=== PATIENT | female | born 1955 ===

== ENCOUNTER 2025-01-22 13:11 | Outpatient (AMB) | payer MEDICARE, SELFPAY ==
--- OUTSIDE RECORDS SUMMARY | 2025-01-22 14:19 | XMS_ITS | Clinical Summary ---
Author Organization [facility] Facility Address [address] [place] [id number] Care Team Providers Care Bonding Machine Tender Name Role Phone Tuan Alicia MD Primary Care Provider [phone] Social History Tobacco Use Types Packs/Day Years Used Date Smoking Tobacco: Never Assessed Comments Unknown Sex and Gender Information Value Date Recorded Sex Assigned at Not on file Legal Sex Female 3:10 PM EDT Gender Identity Not on file Sexual Orientation Not on file Plan of Treatment Health Maintenance Due Date Last Done Comments Breast Cancer Screening 1955 Colorectal Cancer Screening: Annual FOBT 2002 Colorectal Cancer Screening: Colonoscopy 2002 Colorectal Cancer Screening: Sigmoidoscopy 2002 Pneumococcal Vaccine: 50+ Ye ars (1 of 1 - PCV) 09/29/2003 Influenza Vaccine (#1) 2025 Hepatitis B Vaccine Aged Out No longe r eligible based on patient's age to complete this topic Insurance [employer] Care Teams Bonding Machine Tender Relationship Specialty Start Date End Date Tuan Alicia MD [address] [place] [address] PCP - General Internal Medicine 09/07/22
== END 2025-01-22 13:12 | disposition home or self-care (01) ==
LOC: HO.HMGAL 13:11
PROVIDERS: PCP Internal Medicine; Visit Provider Registered Nurse Emergency
DX: J30.89 Other allergic rhinitis (principal)
CPT/HCPCS: 95117; 95165

== ENCOUNTER 2025-02-20 13:11 | Outpatient (AMB) | payer MEDICARE, SELFPAY ==
--- OUTSIDE RECORDS SUMMARY | 2025-02-20 16:49 | XMS_ITS | Clinical Summary ---
Author Organization [facility] Facility Address [address] [place] [id number] Care Team Providers Care Mathematics Professor Name Role Phone Tuan Alicia MD Primary Care Provider Social History Tobacco Use Types Packs/Day Years [...] this topic Insurance [employer] Care Teams Mathematics Professor Relationship Specialty Start Date End Date Tuan Alicia MD [address] [place] [address] PCP - General Internal Medicine 09/07/22
== END 2025-02-20 13:19 | disposition home or self-care (01) ==
LOC: HO.HMGAL 13:11
PROVIDERS: PCP Internal Medicine; Visit Provider Registered Nurse Emergency
DX: J30.89 Other allergic rhinitis (principal)
CPT/HCPCS: 95117; 95165

== ENCOUNTER 2025-03-25 13:32 | Outpatient (AMB) | payer MEDICARE, SELFPAY ==
--- OUTSIDE RECORDS SUMMARY | 2025-03-25 16:39 | XMS_ITS | Clinical Summary ---
Author Organization [facility] Facility Address [address] [place] [id number] Care Team Providers Care Medicaid Business Analyst Name Role Phone Tuan Alicia MD Primary [...] this topic Insurance [employer] Care Teams Medicaid Business Analyst Relationship Specialty Start Date End Date Tuan Alicia MD [address] [place] [address] PCP - General Internal Medicine 09/07/22
== END 2025-03-25 13:36 | disposition home or self-care (01) ==
LOC: HO.HMGAL 13:32
PROVIDERS: PCP Internal Medicine; Visit Provider Registered Nurse Emergency
DX: J30.89 Other allergic rhinitis (principal)
CPT/HCPCS: 95117; 95165

== ENCOUNTER 2025-04-22 13:10 | Outpatient (AMB) | payer MEDICARE, SELFPAY | END 2025-04-22 13:12 | disposition home or self-care (01) | LOC: HO.HMGAL 13:10 | PROVIDERS: PCP Internal Medicine; Visit Provider Registered Nurse Emergency | DX: J30.89 Other allergic rhinitis (principal) | CPT/HCPCS: 95117; 95165 ==

== ENCOUNTER 2025-05-22 13:25 | Outpatient (AMB) | payer MEDICARE, SELFPAY | END 2025-05-22 13:26 | disposition home or self-care (01) | LOC: HO.HMGAL 13:25 | PROVIDERS: PCP Internal Medicine; Visit Provider Registered Nurse Emergency | DX: J30.89 Other allergic rhinitis (principal) | CPT/HCPCS: 95117; 95165 ==